=== PATIENT | female | born 1985 | race Caucasian/White ===

== ENCOUNTER 2019-06-25 15:33 | Outpatient (CLI) | payer BC ==
--- NOTE | 2019-06-25 18:40 | XRAY Report ---
Reason: RIGHT HAND JOINT PAIN Procedure Date: 06/25/2019 Accession Number: [id number] / [id number] Procedure: XR - Elbow 3 View RT CPT Code: Final Report FULL RESULT: EXAM: RIGHT ELBOW RADIOGRAPHY EXAM DATE: 06/25/2019 03:56 PM. CLINICAL HISTORY: Right hand joint pain, worse in third digit for 2 months. Right elbow pain. COMPARISON: None. TECHNIQUE: 3 views. FINDINGS: Bones: No acute fracture or bony lesion. Small osteophyte arising from the coronoid process. No bony erosions. Joints: Mild narrowing of the medial right elbow joint space. No elbow effusion. No dislocation. Soft Tissues: Normal. No soft tissue swelling. IMPRESSION: 1. 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 2. No acute osseous abnormalities. [facility]
--- NOTE | 2019-06-25 18:41 | XRAY Report ---
Reason: RIGHT HAND JOINT PAIN Procedure Date: 06/25/2019 Accession Number: [id number] / [id number] Procedure: XR - Hand 3 View RT CPT Code: Final Report FULL RESULT: EXAM: RIGHT HAND RADIOGRAPHY EXAM DATE: 06/25/2019 04:01 PM. CLINICAL HISTORY: Right hand joint pain. Right elbow pain. COMPARISON: None. TECHNIQUE: 3 views. FINDINGS: Bones: No acute fracture or bony lesion. No bony erosions. No periosteal reaction. Joints: Normal alignment. No significant degenerative changes. No dislocation. Soft Tissues: Normal. No soft tissue swelling. IMPRESSION: 1. No osseous abnormalities. [facility]
== END 2019-06-25 15:34 | disposition home or self-care (01) ==
LOC: DI 15:33
PROVIDERS: ATTEND Naprapath
DX: M19.021 Primary osteoarthritis, right elbow (principal); M25.541 Pain in joints of right hand

== ENCOUNTER 2019-12-08 14:55 | Outpatient (CLI) | payer OTHER | END 2019-12-08 14:56 | disposition home or self-care (01) | LOC: LAB 14:55 | PROVIDERS: ATTEND Advanced Practice Midwife | DX: Z00.00 Encounter for general adult medical examination without abnormal findings (principal); Z80.3 Family history of malignant neoplasm of breast | CPT/HCPCS: 36415; 81162; 81599 ==

== ENCOUNTER 2021-12-19 17:23 | Outpatient (CLI) | payer OTHER ==
--- NOTE | 2021-12-20 14:06 | Ultrasound Report ---
PROCEDURE: Soft tissue ultrasound INDICATIONS: BACK LIPOMA TECHNIQUE: Ultrasound of the subcutaneous tissue over the midline back was performed at the area of concern COMPARISON: None. FINDINGS: Anterior concern, there is an avascular isoechoic structure measuring approximately 2.7 x 1.4 x 3.5 c m with characteristics consistent with lipoma. 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
== END 2021-12-19 17:24 | disposition home or self-care (01) ==
LOC: DI 17:23
PROVIDERS: ATTEND Internal Medicine
DX: D17.1 Benign lipomatous neoplasm of skin and subcutaneous tissue of trunk (principal)